=== PATIENT | male | born 1970 | race Hispanic/Latino ===

== ENCOUNTER 2016-05-10 09:40 | Outpatient (CLI) | payer MEDICARE ==
--- NOTE | 2016-05-10 12:08 | Ultrasound Report ---
ULTRASOUND RENAL BILATERAL HISTORY: Microscopic hematuria, UTI. TECHNIQUE: Transabdominal ultrasound. FINDINGS: No comparison at this facility. Many of the images are slightly limited secondary to body habitus. Both kidneys appear normal size, contour and position. The right kidney measures 13.1 cm. The left kidney measures 14.4 cm. There appear to be tiny echogenic foci in both kidneys which probably represent calyceal stones. There is no evidence for hydronephrosis, cystic disease, mass or perinephric fluid. The bladder is empty. IMPRESSION: Bilateral nephrolithiasis is suspected. No hydronephrosis. Consider further evaluation with CT stone protocol.
== END 2016-05-10 09:41 | disposition home or self-care (01) ==
LOC: US 09:40
PROVIDERS: ATTEND Urology
DX: N39.0 Urinary tract infection, site not specified (principal); R31.29 Other microscopic hematuria
CPT/HCPCS: 76770

== ENCOUNTER 2016-06-02 12:29 | Day surgery (SDC) | payer MEDICARE ==
--- NOTE | 2016-05-28 13:33 | Anesthesia Consultation ---
Anesthesia Consult and Med Hx - Airway Anesthetic Teeth Evaluation: Good ROM Head & Neck: Adequate Mental/Hyoid Distance: Inadequate Mallampati Class: Class III Intubation Access Assessment: Possibly Difficult - Pulmonary Exam CTA: Yes - Cardiac Exam Cardiac Exam: RRR - Pre-Operative Health Status ASA Pre-Surgery Classification: ASA4 Proposed Anesthetic Plan: General - Pulmonary Hx Smoking: Yes SOB: Yes Home Oxygen Therapy: Yes (O2 dependent. hx PE) Hx Sleep Apnea: Yes (Bipap) - Cardiovascular System Hx Hypertension: Yes - Central Nervous System Hx Psychiatric Problems: No - Gastrointestinal Hx Gastroesophageal Reflux Disease: Yes (controlles) - Endocrine Hx Insulin Dependent Diabetes: Yes Hx Hypothyroidism: Yes - Hematic Hx Anemia: Yes - Other Systems Hx Alcohol Use: No Hx Substance Use: No Hx Cancer: No Hx Obesity: Yes (BMI 75) - Additional Comments Anesthesia Medical History Comments: Pt is morbidly obese. Hx o2 dependency, IDDM, hypothyrois, HTN, PE's Anemia. Pulmonary and cardiac notes on chart.
[2016-05-28 14:23] LABS: Alanine Aminotransferase 8 units/L (7-56); Albumin 3.3 g/dL (3.9-5); Albumin/Globulin Ratio 0.9 %; Alkaline Phosphatase 53 units/L (35-129); Anion Gap 16 mmol/L; BUN/Creatinine Ratio 14.28; Bilirubin,Total 0.4 mg/dL (0.1-1.2); Blood Urea Nitrogen 10 mg/dL (9-20); Calcium 8.7 mg/dL (8.4-10.2); Carbon Dioxide 28 mmol/L (22-30); Chloride 101.3 mmol/L (98-107); Glucose 111 mg/dL (75-100); Potassium 4.1 mmol/L (3.6-5.0); Sodium 141 mmol/L (137-145)
[~2016-06-02 12:29] MED LIST: ANCEF/STERILE WATER 2 GM/20 ML 2 GM/20 ML SYRINGE IV NR
[2016-06-02] MEDS ORDERED: ZOFRAN IV PRN (13:18)
[2016-06-02] MEDS ORDERED: MORPHINE IV PRN (13:18)
[2016-06-02] MEDS ORDERED: NACL 0.9% 1000 ML 1,000 ML ONE (13:30)
[2016-06-02] MEDS ORDERED: NACL 0.9% 1000 ML 1,000 ML IV SCH (14:00)
[2016-06-02] MEDS ORDERED: PEPCID PO NR (14:00)
--- NOTE | 2016-06-02 14:11 | Anesthesia Day of Surgery ---
Anesthesia Day of Surgery - Day of Surgery Patient Examined: Yes Patient H&P Reviewed: Yes Patient is NPO: Yes
[2016-06-02] MEDS ORDERED: SUBLIMAZE ONE ×2 (15:25→15:26)
[2016-06-02] MEDS ORDERED: DIPRIVAN 10 MG/ML IV ONE ×2 (15:26)
[2016-06-02] MEDS ORDERED: ZOFRAN ONE ×2 (16:24)
[2016-06-02] MEDS ORDERED: DECADRON ONE (16:24)
[2016-06-02] MEDS ORDERED: PROAIR IH ONE (16:29)
[2016-06-02] MEDS ORDERED: ROBINUL ONE (16:29)
[2016-06-02] MEDS ORDERED: WATER FOR IRRIG STERILE IR ONE (16:30)
--- NOTE | 2016-06-02 17:08 | Short Stay Summary ---
Short Stay Documentation Date of service: 06/02/16 - History H&P: obtained from office - Allergies and Medications Current Medications: Allergies liraglutide [From Victoza] Allergy (Unverified 05/10/16 09:41) Rash Home Medications Medication Instructions Recorded Confirmed Last Taken Type Enoxaparin [Lovenox] 60 mg SQ Q12HR 05/20/16 05/20/16 06/01/16 History Furosemide [Lasix TAB] 1 tab PO PRN PRN 05/20/16 05/20/16 06/01/16 History Insulin Detemir [Levemir] 70 units SQ QHS 05/20/16 05/20/16 06/01/16 History Insulin Glargine,Hum.rec.anlog 0 units SQ QHS 05/20/16 05/20/16 06/01/16 History [Lantus Solostar] Levothyroxine Sodium 1 tab PO DAILY 05/20/16 05/20/16 06/02/16 05:20 History [Levothyroxine] Metformin HCl [Glucophage Xr] 500 mg PO BID 05/20/16 05/20/16 06/01/16 History NIFEdipine [Nifedipine ER] 60 mg PO DAILY 05/20/16 05/20/16 06/02/16 05:20 History Pravastatin Sodium [Pravastatin] 40 mg PO QHS 05/20/16 05/20/16 06/01/16 History Pregabalin [Lyrica] 100 mg PO DAILY 05/20/16 05/20/16 06/01/16 History Ferrous Gluconate [Iron 236 MG tab] 1 tab PO DAILY 06/01/16 06/01/16 06/01/16 History Active Medications Famotidine (Pepcid) 20 mg PO PREOP NR Stop: 06/03/16 23:59 Sodium Chloride (Nacl 0.9% 1000 Ml) 1,000 mls @ 75 mls/hr IV DIRECT STEPHANIE Stop: 06/02/16 23:59 Cefazolin Sodium (Ancef/Sterile Water 2 Gm/20 Ml) 2 gm in 20 mls @ 80 mls/hr IV PREOP NR PRN Reason: Protocol Stop: 06/02/16 23:59 Morphine Sulfate (Morphine) 2 mg IV Q10MIN PRN PRN Reason: Pain, Moderate (4-6) Stop: 06/02/16 20:00 Ondansetron HCl (Zofran) 4 mg IV ONCE PRN PRN Reason: Nausea And Vomiting Stop: 06/02/16 20:00 - Brief post op/procedure progress note Date of procedure: 06/02/16 Pre-op diagnosis: rt flank pain, kidney stone Post-op diagnosis: same Procedure: cysto, rpg, rt ureteroscopy, stent with external string Anesthesia: NORMANA Surgeon: JAX SILVA Estimated blood loss: none Pathology: none Condition: stable - Hospital course Hospital course: oliveriorosurekha, post op info on chart - Disposition Condition at discharge: Stable Disposition: DISCHARGED TO HOME OR SELFCARE Short Stay Discharge Plan Follow up with: LIBRA SHIPMAN DO [Primary Care Provider] - 7 Days
[2016-06-02 19:48] VITALS: BP 150/68
--- NOTE | 2016-06-02 22:13 | Operative Report ---
PREOPERATIVE DIAGNOSES: Bilateral kidney stone, right flank pain, increased body mass index, and diabetes. POSTOPERATIVE DIAGNOSES: Bilateral kidney stone, right flank pain, increased body mass index, and diabetes. PROCEDURES PERFORMED: Cystoscopy, bilateral retrograde pyelograms, right ureterorenoscopy, double-J stent placement. SURGEON: Isra Hebert MD ANESTHESIA: General. ANESTHESIOLOGIST: Dr. Nick Corcoran. ESTIMATED BLOOD LOSS: Minimal. FLUIDS: Crystalloid. COMPLICATIONS: No complications. INDICATIONS: This patient is a 46-year-old gentleman, morbidly obese, with bilateral flank pain. Renal ultrasound revealed bilateral kidney stones. I could not get CT due to the patient's weight (456 pounds). He had to get medical preliminary clearance by Dr. Alejandro Graves, his office [phone]. He presents now for surgical intervention. DESCRIPTION OF PROCEDURE: The patient was taken to the operative suite, placed in a supine position. After adequate general anesthesia, placed in a dorsal lithotomy position, prepped and draped in a sterile fashion. Urethral dilation was performed due to some stenosis, has some mild phimosis as well. Cystoscopy was performed. Prostate minimally obstructing his bladder, no tumors or stones were noted. Both ureteral orifices in normal position. Bilateral retrograde pyelograms were obtained with an 8 Luxembourg[place] Jorge catheter and 8 mL of contrast. No filling defects or obstruction. No obvious stones could be appreciated, but it was difficult to evaluate due to his size. Two 0.035 Glidewires were placed in the right collecting system. Due to his size, I used a flexible ureteroscope with access sheath. Ureteroscopy up to the renal pelvis. No obvious stones could be appreciated on the right side. Does have some narrowing of the distal ureter, which the sheath dilated. 6-Lux[place]bourgish 26 cm double-J stent with an external string was left indwelling. Rectal exam was benign. He was extubated and taken to recovery room. [facility] [place] and follow up in the office. PRIMARY CARE PHYSICIAN: Dr. Leo Domínguez. JOB# [id number] [facility]
--- NOTE | 2016-06-03 01:02 | Admit Criteria Form ---
Admission Criteria Documentation: AMBULATORY SURGERY EXCEPTION CRITERIA Ambulatory Surgery Exception Criteria ( Place 'X' for any and all applicable criteria): Surgery or procedure performed on ambulatory basis may require inpatient stay for[A] ANY ONE of the following(1)(2)(3)(4)(5)(6)(7)(8)(9): [X] I. A preoperative situation, condition, or finding that warrants inpatient stay as indicated by ANY ONE of the following: [] a) Inpatient care needed because of severity of a disease or condition rather than the surgery (eg, severe cardiac or respiratory disease, severe infection) (15) (16 ) (17) (18) [] b) Emergent procedure (eg, angioplasty for acute ischemia)(19) [] c) Complex surgical approach or situation as indicated by ANY ONE of the following(3): [] i) Open approach needed instead of usual endoscopic, transcatheter, or other less invasive procedure [] ii) Difficult approach because of previous operation [] iii) Airway monitoring required after open neck procedures(20)(21) [] iv) Large mass requiring unusually extensive dissection [] v) Additional complicating feature requiring inpatient care (eg, drain management)(22(23): [X] d) Major surgery in a pt with high anesthetic risk as indicated by ANY ONE of the following (2)(3)(5)(7)(8): [X] i) ASA risk class III or higher (severe systemic disease impairing function) [D] [] ii) Advanced age (eg, older than 85 years)(14)(24) [] iii) Symptomatic heart failure(25) [] iv) Symptomatic asthma or COPD(8)(21) [] v) Morbid obesity with hemodynamic or respiratory problems(20)( 21)(26)(27) [] vi) Obstructive sleep apnea(20)(21) [] vii) Former premature infants who are younger than 60 weeks [] viii) High risk for severe postoperative abnormalities (eg, severe postoperative hypocalcemia after parathyroidectomy for severe hyperparathyroidism)(27)( 28) [] ix) Unstable angina(25) [] e) Drug-related risk requiring inpatient stay as indicated by ANY ONE of the following(5)(10)(14)(32)(33) [] i) Procedure requires discontinuing drugs or other therapy (eg , antiarrhythmic medication, antiseizure medication), which necessitates inpatient observation or treatment.(18)(31) [] ii) Major surgery and high risk drug use as indicated by ANY ONE of the following: [] 1) Active abuse of cocaine or similar drug [] 2) Monoamine oxidase inhibitor use [] 3) Other drug identified as posing risk [] f) Inadequate outpatient care situation as indicated by ANY ONE of the following(5)(10)(14)(32)(33) [] i) Patient lives remote from medical facility and procedure has urgent complication potential, and temporary nearby residence cannot be arranged [] ii) Patient will have postprocedure incapacitation and inadequate assistance at home, or alternative level of care cannot be arranged. [] iii) Patient will have long general anesthesia or procedure side effect resolution time, and competent person to stay with patient on first postoperative night at home or alternative level of care cannot be arranged. []iv) Other inadequate outpatient situation that cannot be handled by other means [] II. A perioperative event, condition, or finding that warrants inpatient stay as indicated by ANY ONE of the following (1)(2)(3): [] a) Inadequate physiologic recovery: cardiovascular, respiratory, or hemodynamic status not normal or near preoperative baseline(18) [] b) Hemodynamic instability [] c) Patient not alert with near normal or baseline mental status [] d) Temperature not normal or as expected and not appropriate for outpatient treatment of condition [] e) Ambulatory or appropriate activity level status not yet achieved post procedure [E](34)(35)(36) [] f) Operative site not appropriate (eg, unexpected or excessive drainage or bleeding) [] g) Postoperative effects not resolved or adequately managed (eg, significant pain or vomiting not appropriate for outpatient or next level of care)(10)(12) [] h) Complicating features requiring inpatient care as indicated by ANY ONE of the following(37): [] i) Severe complications of procedure (eg, bowel injury, airway compromise, vascular injury,severe hemorrhage) [] ii) Extensive (eg, dissection far beyond usual scope of procedure ) or prolonged (eg, 120 minutes beyond usual) surgery needed requiring inpatient postoperative care [] iii) Conversion to an open or complex procedure that requires inpatient care (eg, open vs laparoscopic cholecystectomy, abdominal vs vaginal hysterectomy)(38) [] iv) Comorbid condition or test result identified during or post procedure that requires inpatient care (7) [] v) Malignant hyperthermia(30) [] vi) Other complicating feature requiring inpatient care(22)(23) Inpatient stay may be needed until ALL of the following are present (1)(2)(3)(4) (5)(6)(10)(14)(33)(40): []a) Physiologic recovery: cardiovascular, respiratory, and hemodynamic status normal or near preoperative baseline []b) Hemodynamic stability []c) Patient alert, with near normal or baseline mental status []d) Temperature appropriate: patient afebrile or temperature appropriate for outpt treatment of condition []e) Activity level appropriate: ambulatory or appropriate activity level post procedure []f) Operative site appropriate as indicated by ALL of the following: []i) Site dry or with expected drainage []ii) Any blood noted is as expected for procedure. []g) Postoperative effects resolved or managed as indicated by ALL of the following: []i) Pain management appropriate for outpatient (or next level of) care(10) []ii) Minimal nausea and vomiting: if present, successfully treated with oral medication(12) []iii) Headache, dizziness, or drowsiness (if present) are mild. []h) Voiding status acceptable as indicated by ANY ONE of the following: []i) Voiding spontaneously []ii) No voiding but instructions given for follow-up in 6 to 8 hours []iii) Urinary catheter in place, and instructions given for follow-up []i) Complicating features requiring inpatient care manageable at a lower level of care(37) []j) Comorbid conditions manageable at a lower level of care(37) The original [employer] content created by [employer] has been revised. The portions of the content which have been revised are identified through the use of italic text or in bold, and [facility] [employer] has neither reviewed nor approved the modified material. All other unmodified content is copyright [employer]. Please see references footnoted in the original [employer] edition 2016 Admission Criteria Met: Yes
--- NOTE | 2016-06-03 16:18 | Fluoroscopy Report ---
RETROGRADE PYELOGRAM. FINDINGS: The right pyelocalyceal system and ureter appear normal. The left ureter is unremarkable. The left pyelocalyceal system is oriented somewhat horizontally, possibly due to malrotation. No other significant findings are seen. On the final image, a double-J right ureteral stent is demonstrated in satisfactory position.
== END 2016-06-02 19:20 | disposition home or self-care (01) ==
LOC: OR 12:29
PROVIDERS: ATTEND Urology
DX: N20.0 Calculus of kidney (principal); N35.9 Urethral stricture, unspecified; N13.5 Crossing vessel and stricture of ureter without hydronephrosis; N47.1 Phimosis; E11.9 Type 2 diabetes mellitus without complications; I10 Essential (primary) hypertension; D64.9 Anemia, unspecified; E03.9 Hypothyroidism, unspecified; K21.9 Gastro-esophageal reflux disease without esophagitis; G47.30 Sleep apnea, unspecified; E66.01 Morbid (severe) obesity due to excess calories; Z68.45 Body mass index [BMI] 70 or greater, adult; Z87.891 Personal history of nicotine dependence; Z86.711 Personal history of pulmonary embolism; Z99.81 Dependence on supplemental oxygen
CPT/HCPCS: 36415; 52332; 74420; 80053; 82962; A4217; C1726; C1758; C1769; C2617; J0690; J1100; J2405; J2704; J3010; J7030; Q9967